=== PATIENT | female | born 1950 | race Two or more races ===

== ENCOUNTER 2021-12-17 07:15 | Inpatient (IN) | payer OTHER ==
[~2021-12-17] VITALS: Ht 154.9 cm; Wt 71.2 kg
[2021-12-17] MEDS ORDERED: LASIX20 MG PO (08:57)
[2021-12-24] MEDS ORDERED: DOXAZOSIN MESYLA4 MG (13:32)
[2021-12-24] MEDS ORDERED: ROSUVASTATIN CA20 MG (13:32)
[2021-12-24] MEDS ORDERED: VALSARTAN-HCTZ1 EAC4 (13:32)
[2021-12-24] MEDS ORDERED: VITAMIN D350 MC4 (13:32)
[2021-12-24] MEDS ORDERED: METOPROLOL SUCC50 MG (13:32)
[2021-12-24] MEDS ORDERED: MULTIVITAMIN-M1 EACH (13:32)
[2021-12-24] MEDS ORDERED: NIFEDIPINE ER30 M1 (13:33)
[2021-12-24] MEDS ORDERED: AMLODIPINE-VAL1 EAC3 (13:33)
[2021-12-24] MEDS ORDERED: PERCOCET 5-3251 EACH PO (17:12)
[2021-12-24] MEDS ORDERED: CEFADROXIL500 MG PO (17:12)
[2021-12-24] MEDS ORDERED: ELIQUIS2.5 MG PO (17:12)
== END 2021-12-24 21:47 | DRG 470 ==
LOC: SURH 12-22 06:43 → O/R 12-22 06:43 → SURG 12-22 07:00 → EDBD 12-22 07:15 → SURH 12-22 21:24
PROVIDERS: ADMIT Orthopaedic Surgery; ATTEND Orthopaedic Surgery
PROC: 0SRC0J9 Replacement of Right Knee Joint with Synthetic Substitute, Cemented, Open Approach (ICD-10-PCS; principal; 2021-12-22 07:00)
DX: M17.11 Unilateral primary osteoarthritis, right knee (principal); D62 Acute posthemorrhagic anemia; M22.11 Recurrent subluxation of patella, right knee; M81.0 Age-related osteoporosis without current pathological fracture; I10 Essential (primary) hypertension; M79.7 Fibromyalgia; Z96.651 Presence of right artificial knee joint; Z20.822 Contact with and (suspected) exposure to COVID-19; E66.8 Other obesity; C50.919 Malignant neoplasm of unspecified site of unspecified female breast

== ENCOUNTER 2022-01-04 18:10 | Emergency (ER) | payer OTHER ==
[~2022-01-04] VITALS: Ht 152.4 cm; Wt 132.0 kg
[~2022-01-04 18:10] MED LIST: AMLODIPINE-VAL1 EAC3; CEFADROXIL500 MG PO; DOXAZOSIN MESYLA4 MG; ELIQUIS2.5 MG PO; LASIX20 MG PO; METOPROLOL SUCC50 MG; MULTIVITAMIN-M1 EACH; NIFEDIPINE ER30 M1; PERCOCET 5-3251 EACH PO; ROSUVASTATIN CA20 MG; VALSARTAN-HCTZ1 EAC4; VITAMIN D350 MC4
== END 2022-01-05 01:53 | disposition home or self-care (01) ==
LOC: ER 18:10
DX: U07.1 COVID-19 (principal); I10 Essential (primary) hypertension